=== PATIENT | male | born 1935 | race Caucasian/White ===

== ENCOUNTER 2022-06-22 11:40 | Inpatient (IN) | payer MEDICARE, OTHER ==
[~2022-06-22] VITALS: Ht 182.9 cm; Wt 86.2 kg
[2022-06-22] MEDS ORDERED: PIPERACILLIN /TAZOBACTAM 3.375 G in IV D5W 50 ML IV ONE (12:00)
[2022-06-22] MEDS ORDERED: IV NS 0.9% 1,000 ML BAG IV ONE ×2 (12:00→14:00)
[2022-06-22] MEDS ORDERED: VANCOMYCIN 1 GM in IV D5W 250 ML IV ONE (12:00)
[2022-06-22] MEDS ORDERED: DEXL60CA3 PO (12:39)
[2022-06-22] MEDS ORDERED: POTA-10 PO (12:39)
[2022-06-22] MEDS ORDERED: PRAM0.258 PO (12:39)
[2022-06-22] MEDS ORDERED: METO5TAB7 PO (12:39)
[2022-06-22] MEDS ORDERED: OMEG1CAP40 PO (12:39)
[2022-06-22] MEDS ORDERED: TAMS-12 PO (12:39)
[2022-06-22] MEDS ORDERED: CARB1TAB21 PO (12:39)
[2022-06-22] MEDS ORDERED: ZINC220T4 PO (12:39)
[2022-06-22] MEDS ORDERED: FURO40TA5 PO (12:39)
[2022-06-22] MEDS ORDERED: ERGO500093 PO (12:39)
[2022-06-22] MEDS ORDERED: LOSA25TA27 PO (12:39)
[2022-06-22] MEDS ORDERED: HYDR-3980 MT (12:39)
[2022-06-22] MEDS ORDERED: HYDR-4303 PO (12:39)
[2022-06-22] MEDS ORDERED: APIX2.5T PO (12:39)
[2022-06-22 12:53] LABS: BASOPHILS % (AUTO) 0.2 % (0.0-2.0); EOSINOPHILS % (AUTO) 0.3 % (0.0-6.0); HEMATOCRIT 44 % (39-51); HEMOGLOBIN 14.2 g/dL (13.5-17.5); LYMPHOCYTES # (AUTO) 1.7 K/uL (0.8-4.8); LYMPHOCYTES % (AUTO) 9.2 % (20.0-44.0); MEAN CORPUSCULAR HGB CONC 32 g/dl (31.0-36.0); MEAN CORPUSCULAR VOLUME 87 fL (80-96); MONOCYTES # (AUTO) 1.4 K/uL (0.1-1.30); MONOCYTES % (AUTO) 7.6 % (2.0-12.0); NEUTROPHILS # (AUTO) 15.2 K/uL (1.8-8.9); NEUTROPHILS % (AUTO) 82.7 % (43.0-81.0); PLATELET COUNT (AUTO) 393 K/uL (150-450); RED BLOOD CELL COUNT(AUTO) 5.05 MIL/uL (4.5-6.0); WHITE BLOOD COUNT (AUTO) 18.4 K/uL (4.3-11.0)
[2022-06-22 12:54] LABS: BILIRUBIN,URINE 1+ (NEGATIVE); COLOR,URINE DARK YELLOW (YELLOW); LEUKOCYTE ESTERASE ,URINE 2+ (NEGATIVE); NITRITE, URINE POSITIVE (NEGATIVE); PROTEIN,URINE NEGATIVE (NEGATIVE); UGLUCOSE NEGATIVE (NEGATIVE)
[2022-06-22 12:55] LABS: ALANINE AMINOTRANSFERASE 47 U/L (12-78); ALBUMIN 2.4 g/dL (3.4-5.0); ALKALINE PHOSPHATASE 187 U/L (46-116); ASPARTATE AMINOTRANSFERASE 74 U/L (15-37); BILIRUBIN,DIRECT 0.7 mg/dL (0.0-0.2); BILIRUBIN,TOTAL 1.4 mg/dL (0.2-1.0); CALCIUM, SERUM 9.1 mg/dL (8.5-10.1); CARBON DIOXIDE 27 mmol/L (21-32); CHLORIDE 95 mmol/L (98-107); CREATININE 1.5 mg/dL (0.6-1.3); GLUCOSE 103 mg/dL (74-106); POTASSIUM 3.2 mmol/L (3.5-5.1); SODIUM SERUM 134 mmol/L (136-145); TOTAL PROTEIN, SERUM 7.6 g/dL (6.4-8.2); UREA NITROGEN, BLOOD 37 mg/dL (7-18)
[2022-06-22] MEDS ORDERED: NATE120T6 PO (12:58)
[2022-06-22] MEDS ORDERED: BENZ200C53 PO (12:58)
[2022-06-22] MEDS ORDERED: CLON0.5T4 PO (12:58)
[2022-06-22 13:06] LABS: BACTERIA,URINE Many /HPF (None Seen); SQUAMOUS EPITHELIAL CELL,UR Moderate /HPF (None Seen); WBC,URINE 21-50 /HPF (0-3)
[2022-06-22] MEDS ORDERED: IV NS 0.9% 1,000 ML IV ONE (13:30)
[2022-06-22] MEDS ORDERED: DEXTROSE 50%-WATER 50 ML DISP.SYRIN IV PRN (15:00)
[2022-06-22] MEDS ORDERED: HYDROCODONE/APAP 5/325MG TABLET PO PRN (15:00)
[2022-06-22] MEDS ORDERED: BENZONATATE 100 MG CAPSULE PO PRN (15:00)
[2022-06-22] MEDS ORDERED: MAG HYDROX/AL HYDROX/SIMETH 30 ML UDC PO PRN (15:00)
[2022-06-22] MEDS ORDERED: MAGNESIUM HYDROXIDE 30 ML UDC PO PRN (15:00)
[2022-06-22] MEDS ORDERED: MORPHINE SULFATE INJ 2 MG/ML DISP.SYRIN IV PRN (15:00)
[2022-06-22] MEDS ORDERED: ONDANSETRON HCL/PF 4 MG/2 ML VIAL IVP PRN (15:00)
[2022-06-22] MEDS ORDERED: Z GUARD REMEDY 4 OZ OINT TP PRN (15:00)
[2022-06-22] MEDS ORDERED: clonazePAM 0.5 MG TABLET PO PRN (15:00)
[2022-06-22] MEDS ORDERED: IV NS 0.9% 1,000 ML IV PRN (15:00)
[2022-06-22 16:00] VITALS: BP 129/76
[2022-06-22] MEDS: PRAMIPEXOLE DI-HCL 0.25 MG TABLET PO SCH (16:45)
[2022-06-22] MEDS: CARBIDOPA/LEVODOPA 25/100 MG 1 UDTAB PO SCH (16:45)
[2022-06-22] MEDS: BLOOD SUGAR DIAGNOSTIC 1 EACH STRIP IN SCH ×2 (16:54→21:10)
[2022-06-22] MEDS ORDERED: APIXABAN 2.5 MG TABLET PO SCH (17:00)
[2022-06-22] MEDS: NATEGLINIDE 60 MG TABLET PO SCH (17:12)
[2022-06-22] MEDS: PIPERACILLIN /TAZOBACTAM 3.375 G in IV D5W 100 ML IV SCH (21:10)
[2022-06-22] MEDS ORDERED: POTASSIUM CHLORIDE 10 MEQ TABLET.SA PO ONE (22:00)
[2022-06-23] MEDS: PIPERACILLIN /TAZOBACTAM 3.375 G in IV D5W 100 ML IV SCH ×3 (04:35→21:19)
[2022-06-23] MEDS: BLOOD SUGAR DIAGNOSTIC 1 EACH STRIP IN SCH ×4 (06:45→21:52)
[2022-06-23 06:48] LABS: BASOPHILS % (AUTO) 0.2 % (0.0-2.0); EOSINOPHILS % (AUTO) 0.3 % (0.0-6.0); HEMATOCRIT 38 % (39-51); HEMOGLOBIN 12.4 g/dL (13.5-17.5); LYMPHOCYTES # (AUTO) 1.3 K/uL (0.8-4.8); LYMPHOCYTES % (AUTO) 7.3 % (20.0-44.0); MEAN CORPUSCULAR HGB CONC 32 g/dl (31.0-36.0); MEAN CORPUSCULAR VOLUME 87 fL (80-96); MONOCYTES # (AUTO) 1.3 K/uL (0.1-1.30); MONOCYTES % (AUTO) 7.5 % (2.0-12.0); NEUTROPHILS # (AUTO) 15.3 K/uL (1.8-8.9); NEUTROPHILS % (AUTO) 84.7 % (43.0-81.0); PLATELET COUNT (AUTO) 340 K/uL (150-450); RED BLOOD CELL COUNT(AUTO) 4.41 MIL/uL (4.5-6.0)
[2022-06-23 06:58] LABS: CALCIUM, SERUM 8.6 mg/dL (8.5-10.1); CREATININE 1.2 mg/dL (0.6-1.3); PHOSPHORUS 3.4 mg/dL (2.5-4.9)
[2022-06-23 07:02] LABS: POTASSIUM 2.7 mmol/L (3.5-5.1)
[2022-06-23 07:20] LABS: THYROID STIMULATING HORMONE 0.512 uIU/mL (0.358-3.74)
[2022-06-23 08:00] VITALS: BP 97/52
[2022-06-23] MEDS: LOSARTAN POTASSIUM 25 MG TABLET PO SCH (09:00)
[2022-06-23] MEDS ORDERED: METOLAZONE 2.5 MG TABLET PO SCH (09:00)
[2022-06-23] MEDS ORDERED: FUROSEMIDE 40 MG TABLET PO SCH (09:00)
[2022-06-23] MEDS: POTASSIUM CHLORIDE 10 MEQ TABLET.SA PO SCH (09:06)
[2022-06-23] MEDS: PANTOPRAZOLE 40 MG TABLET.DR PO SCH (09:06)
[2022-06-23] MEDS: ZINC SULFATE 220 MG CAPSULE PO SCH (09:06)
[2022-06-23] MEDS: TAMSULOSIN 0.4 MG CAP.SR.24H PO SCH (09:06)
[2022-06-23] MEDS: PRAMIPEXOLE DI-HCL 0.25 MG TABLET PO SCH ×2 (09:07→17:45)
[2022-06-23] MEDS: CARBIDOPA/LEVODOPA 25/100 MG 1 UDTAB PO SCH ×3 (09:13→17:45)
[2022-06-23] MEDS: POTASSIUM CHLORIDE 20 MEQ TAB.PRT.SR PO SCH ×2 (09:13→10:00)
[2022-06-23] MEDS: NATEGLINIDE 60 MG TABLET PO SCH ×3 (09:15→17:46)
[2022-06-23] MEDS: POTASSIUM CL. PREMIX PERIPHER. 50 ML IV SCH ×5 (10:20→14:37)
[2022-06-23 12:00] VITALS: BP 120/61
[2022-06-23] MEDS ORDERED: VANCOMYCIN 1 GM in IV D5W 250 ML IV SCH (12:00)
[2022-06-23] MEDS: VANCOMYCIN 1.25 GM in IV D5W 250 ML IV SCH (14:37)
[2022-06-23 16:00] VITALS: BP 107/43
[2022-06-23 20:52] VITALS: BP 116/83
[2022-06-24 00:05] VITALS: BP 108/43
[2022-06-24 04:26] VITALS: BP 108/49
[2022-06-24] MEDS: PIPERACILLIN /TAZOBACTAM 3.375 G in IV D5W 100 ML IV SCH ×3 (05:22→20:18)
[2022-06-24 06:11] LABS: BASOPHILS % (AUTO) 0.2 % (0.0-2.0); EOSINOPHILS % (AUTO) 0.5 % (0.0-6.0); HEMATOCRIT 37 % (39-51); LYMPHOCYTES # (AUTO) 1.6 K/uL (0.8-4.8); LYMPHOCYTES % (AUTO) 10.2 % (20.0-44.0); MEAN CORPUSCULAR HGB CONC 33 g/dl (31.0-36.0); MEAN CORPUSCULAR VOLUME 87 fL (80-96); MONOCYTES # (AUTO) 1.1 K/uL (0.1-1.30); MONOCYTES % (AUTO) 6.8 % (2.0-12.0); NEUTROPHILS # (AUTO) 13.1 K/uL (1.8-8.9); NEUTROPHILS % (AUTO) 82.3 % (43.0-81.0); PLATELET COUNT (AUTO) 347 K/uL (150-450); RED BLOOD CELL COUNT(AUTO) 4.24 MIL/uL (4.5-6.0); WHITE BLOOD COUNT (AUTO) 15.9 K/uL (4.3-11.0)
[2022-06-24 06:36] LABS: CALCIUM, SERUM 8.6 mg/dL (8.5-10.1); CARBON DIOXIDE 28 mmol/L (21-32); CHLORIDE 103 mmol/L (98-107); CREATININE 1.2 mg/dL (0.6-1.3); GLUCOSE 97 mg/dL (74-106); POTASSIUM 3.5 mmol/L (3.5-5.1); SODIUM SERUM 137 mmol/L (136-145); UREA NITROGEN, BLOOD 30 mg/dL (7-18)
[2022-06-24] MEDS: BLOOD SUGAR DIAGNOSTIC 1 EACH STRIP IN SCH ×4 (06:37→21:01)
[2022-06-24 08:08] VITALS: BP 102/55
[2022-06-24] MEDS: CARBIDOPA/LEVODOPA 25/100 MG 1 UDTAB PO SCH ×3 (08:56→17:30)
[2022-06-24] MEDS: TAMSULOSIN 0.4 MG CAP.SR.24H PO SCH (08:56)
[2022-06-24] MEDS: POTASSIUM CHLORIDE 10 MEQ TABLET.SA PO SCH (08:56)
[2022-06-24] MEDS: LOSARTAN POTASSIUM 25 MG TABLET PO SCH (08:56)
[2022-06-24] MEDS: PRAMIPEXOLE DI-HCL 0.25 MG TABLET PO SCH ×2 (08:56→17:30)
[2022-06-24] MEDS: NATEGLINIDE 60 MG TABLET PO SCH ×3 (08:59→17:30)
[2022-06-24] MEDS: ZINC SULFATE 220 MG CAPSULE PO SCH (09:00)
[2022-06-24] MEDS: PANTOPRAZOLE 40 MG TABLET.DR PO SCH (09:00)
[2022-06-24] MEDS: VANCOMYCIN 1.25 GM in IV D5W 250 ML IV SCH (13:15)
[2022-06-24 16:03] VITALS: BP 99/55
[2022-06-24] MEDS: ENSURE ENLIVE 237 ML LIQUID (VANILLA) PO SCH (17:00)
[2022-06-24] MEDS: IV D5/ 0.9% NACL 1,000 ML IV PRN (18:52)
[2022-06-24] MEDS ORDERED: ANESTHESIA TRAY IN PYXIS 1 EA TRAY MC ONE (18:52)
[2022-06-24 20:00] VITALS: BP 100/46
[2022-06-24] MEDS: INSULIN REGULAR, HUMAN 100 UNIT/ML 3 ML VIAL SQ PRN (21:02)
[2022-06-25] VITALS (25 sets, daily range): BP systolic 79–135; BP diastolic 39–71
[2022-06-25] MEDS: PIPERACILLIN /TAZOBACTAM 3.375 G in IV D5W 100 ML IV SCH ×3 (04:19→20:34)
[2022-06-25] MEDS ORDERED: ANESTHESIA TRAY IN PYXIS 1 EA TRAY MC ONE ×2 (05:36→07:33)
[2022-06-25] MEDS ORDERED: LIDOCAINE 1% INJ 50 ML MDV IJ ONE (05:37)
[2022-06-25] MEDS ORDERED: BUPIVACAINE 0.25% 75 MG/30 ML VIAL ONE (05:37)
[2022-06-25] MEDS ORDERED: FAMOTIDINE/PF INJ 20 MG/2 ML VIAL IV ONE (05:58)
[2022-06-25] MEDS ORDERED: FENTANYL PF 100MCG/2ML AMPUL ONE (05:58)
[2022-06-25] MEDS ORDERED: IODIXANOL 150 ML IV ONE (07:12)
[2022-06-25 07:18] LABS: BASOPHILS % (AUTO) 0.3 % (0.0-2.0); EOSINOPHILS % (AUTO) 0.6 % (0.0-6.0); HEMATOCRIT 42 % (39-51); HEMOGLOBIN 12.7 g/dL (13.5-17.5); LYMPHOCYTES # (AUTO) 1.5 K/uL (0.8-4.8); LYMPHOCYTES % (AUTO) 10.6 % (20.0-44.0); MEAN CORPUSCULAR HGB CONC 30 g/dl (31.0-36.0); MEAN CORPUSCULAR VOLUME 93 fL (80-96); MONOCYTES % (AUTO) 6.9 % (2.0-12.0); NEUTROPHILS # (AUTO) 11.6 K/uL (1.8-8.9); NEUTROPHILS % (AUTO) 81.6 % (43.0-81.0); PLATELET COUNT (AUTO) 324 K/uL (150-450); RED BLOOD CELL COUNT(AUTO) 4.48 MIL/uL (4.5-6.0); WHITE BLOOD COUNT (AUTO) 14.2 K/uL (4.3-11.0)
[2022-06-25] MEDS: PANTOPRAZOLE 40 MG TABLET.DR PO SCH (07:30)
[2022-06-25] MEDS ORDERED: MEPERIDINE25 MG SYR 25 MG/ML VIAL ONE (07:40)
[2022-06-25] MEDS: BLOOD SUGAR DIAGNOSTIC 1 EACH STRIP IN SCH ×4 (07:57→21:59)
[2022-06-25] MEDS: INSULIN REGULAR, HUMAN 100 UNIT/ML 3 ML VIAL SQ PRN ×2 (07:58→17:41)
[2022-06-25] MEDS: ENSURE ENLIVE 237 ML LIQUID (VANILLA) PO SCH ×3 (08:00→17:00)
[2022-06-25] MEDS: PRAMIPEXOLE DI-HCL 0.25 MG TABLET PO SCH ×2 (09:00→16:42)
[2022-06-25] MEDS: NATEGLINIDE 60 MG TABLET PO SCH ×3 (09:00→16:42)
[2022-06-25] MEDS: POTASSIUM CHLORIDE 10 MEQ TABLET.SA PO SCH (09:00)
[2022-06-25] MEDS ORDERED: ACETAMINOPHEN 650 MG/SUPP.RECT RC ONE (09:00)
[2022-06-25] MEDS: TAMSULOSIN 0.4 MG CAP.SR.24H PO SCH (09:00)
[2022-06-25] MEDS: LOSARTAN POTASSIUM 25 MG TABLET PO SCH (09:00)
[2022-06-25] MEDS: CARBIDOPA/LEVODOPA 25/100 MG 1 UDTAB PO SCH ×3 (09:00→16:42)
[2022-06-25] MEDS: ZINC SULFATE 220 MG CAPSULE PO SCH (09:00)
[2022-06-25] MEDS ORDERED: SECONDARY IV SET 1 EA INFUS.SET MC ONE (10:58)
[2022-06-25] MEDS ORDERED: CEFAZOLIN 2 GM in IV D5W 100 ML IV ONE (11:00)
[2022-06-25] MEDS ORDERED: ANCEF 1 GM/50 ML D5W IV ONE ×2 (11:00)
[2022-06-25] MEDS: VANCOMYCIN 1.25 GM in IV D5W 250 ML IV SCH (13:43)
[2022-06-25 15:37] LABS: CALCIUM, SERUM 7.9 mg/dL (8.5-10.1); CARBON DIOXIDE 23 mmol/L (21-32); CHLORIDE 104 mmol/L (98-107); CREATININE 1.6 mg/dL (0.6-1.3); GLUCOSE 136 mg/dL (74-106); POTASSIUM 2.9 mmol/L (3.5-5.1); SODIUM SERUM 137 mmol/L (136-145); UREA NITROGEN, BLOOD 28 mg/dL (7-18)
[2022-06-25] MEDS: IV D5/ 0.9% NACL 1,000 ML IV PRN (17:37)
[2022-06-25] MEDS ORDERED: IV NS 0.9% 1,000 ML IV ONE (19:30)
[2022-06-25] MEDS: ANCEF 1 GM/50 ML D5W IV SCH ×2 (20:41)
[2022-06-25] MEDS ORDERED: POTASSIUM CHLORIDE 20 MEQ TAB.PRT.SR PO ONE (23:30)
[2022-06-26 00:30] VITALS: BP 91/42
[2022-06-26 01:28] LABS: BAND % (MANUAL) 4 % (0.0-5.0); LYMPHOCYTES % (MANUAL) 12 % (16-48); NEUTROPHILS % (MANUAL) 76 (42-76)
[2022-06-26 01:29] LABS: BASOPHILS % (MANUAL) 0 % (0.0-2.0); EOSINOPHILS % (MANUAL) 0 % (0-4); MONOCYTES % (MANUAL) 8 % (0-11.0)
[2022-06-26 04:36] VITALS: BP 102/49
[2022-06-26] MEDS: ANCEF 1 GM/50 ML D5W IV SCH ×4 (05:17→12:01)
[2022-06-26] MEDS: PIPERACILLIN /TAZOBACTAM 3.375 G in IV D5W 100 ML IV SCH (05:18)
[2022-06-26] MEDS: BLOOD SUGAR DIAGNOSTIC 1 EACH STRIP IN SCH ×4 (06:40→22:01)
[2022-06-26 07:05] LABS: BASOPHILS % (AUTO) 0.2 % (0.0-2.0); EOSINOPHILS % (AUTO) 0.3 % (0.0-6.0); HEMATOCRIT 36 % (39-51); HEMOGLOBIN 11.4 g/dL (13.5-17.5); LYMPHOCYTES # (AUTO) 1.6 K/uL (0.8-4.8); MEAN CORPUSCULAR HGB CONC 32 g/dl (31.0-36.0); MEAN CORPUSCULAR VOLUME 87 fL (80-96); MONOCYTES % (AUTO) 4.5 % (2.0-12.0); NEUTROPHILS # (AUTO) 20.3 K/uL (1.8-8.9); PLATELET COUNT (AUTO) 365 K/uL (150-450); RED BLOOD CELL COUNT(AUTO) 4.17 MIL/uL (4.5-6.0); WHITE BLOOD COUNT (AUTO) 23.1 K/uL (4.3-11.0)
[2022-06-26] MEDS: PANTOPRAZOLE 40 MG TABLET.DR PO SCH (07:39)
[2022-06-26 07:41] LABS: CALCIUM, SERUM 8.2 mg/dL (8.5-10.1); CARBON DIOXIDE 25 mmol/L (21-32); CHLORIDE 105 mmol/L (98-107); CREATININE 1.5 mg/dL (0.6-1.3); GLUCOSE 91 mg/dL (74-106); POTASSIUM 3.7 mmol/L (3.5-5.1); SODIUM SERUM 139 mmol/L (136-145); UREA NITROGEN, BLOOD 27 mg/dL (7-18)
[2022-06-26] MEDS: ENSURE ENLIVE 237 ML LIQUID (VANILLA) PO SCH ×3 (08:04→17:07)
[2022-06-26] MEDS: NATEGLINIDE 60 MG TABLET PO SCH ×3 (08:06→16:10)
[2022-06-26] MEDS: POTASSIUM CHLORIDE 10 MEQ TABLET.SA PO SCH (08:06)
[2022-06-26] MEDS: ZINC SULFATE 220 MG CAPSULE PO SCH (08:06)
[2022-06-26] MEDS: CARBIDOPA/LEVODOPA 25/100 MG 1 UDTAB PO SCH ×3 (08:06→16:09)
[2022-06-26] MEDS: PRAMIPEXOLE DI-HCL 0.25 MG TABLET PO SCH ×2 (08:06→16:09)
[2022-06-26] MEDS: LOSARTAN POTASSIUM 25 MG TABLET PO SCH (08:06)
[2022-06-26] MEDS: TAMSULOSIN 0.4 MG CAP.SR.24H PO SCH (08:08)
[2022-06-26] MEDS: ERGOCALCIFEROL (VITAMIN D 2) 50,000 UNIT CAPSULE PO SCH (08:09)
[2022-06-26 08:38] VITALS: BP 114/56
[2022-06-26] MEDS: INSULIN REGULAR, HUMAN 100 UNIT/ML 3 ML VIAL SQ PRN ×2 (11:31→17:01)
[2022-06-26] MEDS: VANCOMYCIN 1.25 GM in IV D5W 250 ML IV SCH (12:55)
[2022-06-26] MEDS: ACETAMINOPHEN 325 MG TABLET PO PRN (13:46)
[2022-06-26 16:20] VITALS: BP 119/54
[2022-06-26] MEDS: IV D5/ 0.9% NACL 1,000 ML IV PRN (19:03)
[2022-06-26 20:00] VITALS: BP 129/68
[2022-06-26] MEDS: CEFEPIME 2 GM in IV D5W 100 ML IV SCH (21:07)
[2022-06-27 00:24] VITALS: BP 124/55
[2022-06-27 06:15] LABS: BASOPHILS # (AUTO) 0.1 K/uL (0.0-0.2); BASOPHILS % (AUTO) 0.3 % (0.0-2.0); EOSINOPHILS % (AUTO) 0.5 % (0.0-6.0); HEMATOCRIT 40 % (39-51); HEMOGLOBIN 12.7 g/dL (13.5-17.5); LYMPHOCYTES # (AUTO) 1.5 K/uL (0.8-4.8); LYMPHOCYTES % (AUTO) 6.3 % (20.0-44.0); MEAN CORPUSCULAR HGB CONC 32 g/dl (31.0-36.0); MEAN CORPUSCULAR VOLUME 87 fL (80-96); MONOCYTES % (AUTO) 4.2 % (2.0-12.0); NEUTROPHILS # (AUTO) 20.5 K/uL (1.8-8.9); NEUTROPHILS % (AUTO) 88.7 % (43.0-81.0); PLATELET COUNT (AUTO) 367 K/uL (150-450); RED BLOOD CELL COUNT(AUTO) 4.56 MIL/uL (4.5-6.0); WHITE BLOOD COUNT (AUTO) 23.1 K/uL (4.3-11.0)
[2022-06-27 06:31] LABS: CALCIUM, SERUM 8.4 mg/dL (8.5-10.1); CARBON DIOXIDE 19 mmol/L (21-32); CHLORIDE 106 mmol/L (98-107); CREATININE 1.2 mg/dL (0.6-1.3); GLUCOSE 146 mg/dL (74-106); POTASSIUM 4.1 mmol/L (3.5-5.1); SODIUM SERUM 136 mmol/L (136-145); UREA NITROGEN, BLOOD 21 mg/dL (7-18)
[2022-06-27] MEDS: BLOOD SUGAR DIAGNOSTIC 1 EACH STRIP IN SCH ×4 (06:35→22:00)
[2022-06-27 08:00] VITALS: BP 144/77
[2022-06-27] MEDS: ENSURE ENLIVE 237 ML LIQUID (VANILLA) PO SCH ×3 (08:02→16:20)
[2022-06-27] MEDS: PANTOPRAZOLE 40 MG TABLET.DR PO SCH (08:02)
[2022-06-27] MEDS: NATEGLINIDE 60 MG TABLET PO SCH ×3 (08:55→16:20)
[2022-06-27] MEDS: CARBIDOPA/LEVODOPA 25/100 MG 1 UDTAB PO SCH ×3 (08:55→16:20)
[2022-06-27] MEDS: LOSARTAN POTASSIUM 25 MG TABLET PO SCH (08:55)
[2022-06-27] MEDS: TAMSULOSIN 0.4 MG CAP.SR.24H PO SCH (08:55)
[2022-06-27] MEDS: POTASSIUM CHLORIDE 10 MEQ TABLET.SA PO SCH (08:55)
[2022-06-27] MEDS: PRAMIPEXOLE DI-HCL 0.25 MG TABLET PO SCH ×2 (08:55→16:20)
[2022-06-27] MEDS: ZINC SULFATE 220 MG CAPSULE PO SCH (08:55)
[2022-06-27] MEDS: CEFEPIME 2 GM in IV D5W 100 ML IV SCH ×2 (08:57→21:49)
[2022-06-27] MEDS: HEPARIN SODIUM, PORCINE 5000 UNITS/1 ML VIAL SQ SCH ×2 (10:28→21:49)
[2022-06-27 10:48] LABS: BAND % (MANUAL) 1 % (0.0-5.0); NEUTROPHILS % (MANUAL) 87 (42-76)
[2022-06-27 10:49] LABS: BASOPHILS % (MANUAL) 0 % (0.0-2.0); EOSINOPHILS % (MANUAL) 1 % (0-4); LYMPHOCYTES % (MANUAL) 9 % (16-48); MONOCYTES % (MANUAL) 2 % (0-11.0)
[2022-06-27] MEDS: IV D5/ 0.9% NACL 1,000 ML IV PRN (10:56)
[2022-06-27 12:00] VITALS: BP 124/60
[2022-06-27] MEDS: INSULIN REGULAR, HUMAN 100 UNIT/ML 3 ML VIAL SQ PRN ×2 (12:57→16:55)
[2022-06-27] MEDS: VANCOMYCIN 1.25 GM in IV D5W 250 ML IV SCH (13:09)
[2022-06-27 16:00] VITALS: BP 142/62
[2022-06-27 20:00] VITALS: BP 129/56
[2022-06-28] VITALS: BP 144/52
[2022-06-28 04:00] VITALS: BP 142/65
[2022-06-28] MEDS: IV D5/ 0.9% NACL 1,000 ML IV PRN ×2 (04:41→19:06)
[2022-06-28] MEDS: BLOOD SUGAR DIAGNOSTIC 1 EACH STRIP IN SCH ×4 (06:53→22:00)
[2022-06-28 07:00] VITALS: BP 135/59
[2022-06-28 07:30] LABS: BASOPHILS # (AUTO) 0.1 K/uL (0.0-0.2); BASOPHILS % (AUTO) 0.4 % (0.0-2.0); EOSINOPHILS % (AUTO) 0.6 % (0.0-6.0); HEMATOCRIT 39 % (39-51); HEMOGLOBIN 12.4 g/dL (13.5-17.5); LYMPHOCYTES # (AUTO) 1.3 K/uL (0.8-4.8); LYMPHOCYTES % (AUTO) 6.9 % (20.0-44.0); MEAN CORPUSCULAR HGB CONC 32 g/dl (31.0-36.0); MEAN CORPUSCULAR VOLUME 88 fL (80-96); MONOCYTES % (AUTO) 5.3 % (2.0-12.0); NEUTROPHILS # (AUTO) 16.1 K/uL (1.8-8.9); NEUTROPHILS % (AUTO) 86.8 % (43.0-81.0); PLATELET COUNT (AUTO) 337 K/uL (150-450); RED BLOOD CELL COUNT(AUTO) 4.47 MIL/uL (4.5-6.0); WHITE BLOOD COUNT (AUTO) 18.5 K/uL (4.3-11.0)
[2022-06-28 07:43] LABS: CALCIUM, SERUM 8.4 mg/dL (8.5-10.1); CREATININE 1.1 mg/dL (0.6-1.3); POTASSIUM 3.9 mmol/L (3.5-5.1)
[2022-06-28] MEDS: PANTOPRAZOLE 40 MG TABLET.DR PO SCH (08:00)
[2022-06-28] MEDS: ENSURE ENLIVE 237 ML LIQUID (VANILLA) PO SCH ×3 (08:01→17:09)
[2022-06-28] MEDS: ZINC SULFATE 220 MG CAPSULE PO SCH (08:44)
[2022-06-28] MEDS: NATEGLINIDE 60 MG TABLET PO SCH ×4 (08:44→17:08)
[2022-06-28] MEDS: PRAMIPEXOLE DI-HCL 0.25 MG TABLET PO SCH ×3 (08:45→17:09)
[2022-06-28] MEDS: CARBIDOPA/LEVODOPA 25/100 MG 1 UDTAB PO SCH ×5 (08:45→17:09)
[2022-06-28] MEDS: LOSARTAN POTASSIUM 25 MG TABLET PO SCH (08:45)
[2022-06-28] MEDS: POTASSIUM CHLORIDE 10 MEQ TABLET.SA PO SCH (08:45)
[2022-06-28] MEDS: TAMSULOSIN 0.4 MG CAP.SR.24H PO SCH (08:45)
[2022-06-28] MEDS: HEPARIN SODIUM, PORCINE 5000 UNITS/1 ML VIAL SQ SCH ×2 (08:47→22:43)
[2022-06-28] MEDS: CEFEPIME 2 GM in IV D5W 100 ML IV SCH (08:50)
[2022-06-28] MEDS: VANCOMYCIN 1.25 GM in IV D5W 250 ML IV SCH (13:00)
[2022-06-28] MEDS: VANCOMYCIN 1 GM in IV D5W 250 ML IV SCH (15:26)
[2022-06-28] MEDS: INSULIN REGULAR, HUMAN 100 UNIT/ML 3 ML VIAL SQ PRN (16:51)
[2022-06-28] MEDS: MEROPENEM 1 G in IV NS 0.9% 100 ML IV SCH (17:54)
[2022-06-28] MEDS ORDERED: MEROPENEM 500 MG in IV NS 0.9% 50 ML IV SCH (21:00)
[2022-06-28 23:30] VITALS: BP 134/90
[2022-06-29] VITALS: BP 101/80
[2022-06-29] MEDS: MEROPENEM 1 G in IV NS 0.9% 100 ML IV SCH ×3 (02:00→17:54)
[2022-06-29 04:00] VITALS: BP 132/82
[2022-06-29] MEDS: BLOOD SUGAR DIAGNOSTIC 1 EACH STRIP IN SCH ×4 (06:48→22:27)
[2022-06-29 08:00] VITALS: BP 124/54
[2022-06-29] MEDS: NATEGLINIDE 60 MG TABLET PO SCH ×3 (08:28→16:16)
[2022-06-29] MEDS: PRAMIPEXOLE DI-HCL 0.25 MG TABLET PO SCH ×2 (08:30→16:16)
[2022-06-29] MEDS: CARBIDOPA/LEVODOPA 25/100 MG 1 UDTAB PO SCH ×3 (08:30→16:15)
[2022-06-29] MEDS: TAMSULOSIN 0.4 MG CAP.SR.24H PO SCH (08:30)
[2022-06-29] MEDS: HEPARIN SODIUM, PORCINE 5000 UNITS/1 ML VIAL SQ SCH ×3 (08:30→21:52)
[2022-06-29] MEDS: ZINC SULFATE 220 MG CAPSULE PO SCH (08:32)
[2022-06-29] MEDS: POTASSIUM CHLORIDE 10 MEQ TABLET.SA PO SCH (08:32)
[2022-06-29] MEDS: PANTOPRAZOLE 40 MG TABLET.DR PO SCH (08:33)
[2022-06-29] MEDS: LOSARTAN POTASSIUM 25 MG TABLET PO SCH (08:39)
[2022-06-29] MEDS: ENSURE ENLIVE 237 ML LIQUID (VANILLA) PO SCH ×3 (08:59→17:01)
[2022-06-29 12:00] VITALS: BP 134/51
[2022-06-29] MEDS: VANCOMYCIN 1 GM in IV D5W 250 ML IV SCH (15:07)
[2022-06-29 15:43] LABS: BASOPHILS # (AUTO) 0.1 K/uL (0.0-0.2); BASOPHILS % (AUTO) 0.5 % (0.0-2.0); EOSINOPHILS % (AUTO) 1.2 % (0.0-6.0); HEMATOCRIT 37 % (39-51); HEMOGLOBIN 11.6 g/dL (13.5-17.5); LYMPHOCYTES # (AUTO) 1.3 K/uL (0.8-4.8); LYMPHOCYTES % (AUTO) 10.9 % (20.0-44.0); MEAN CORPUSCULAR HGB CONC 32 g/dl (31.0-36.0); MEAN CORPUSCULAR VOLUME 87 fL (80-96); MONOCYTES # (AUTO) 0.8 K/uL (0.1-1.30); MONOCYTES % (AUTO) 6.3 % (2.0-12.0); NEUTROPHILS % (AUTO) 81.1 % (43.0-81.0); PLATELET COUNT (AUTO) 379 K/uL (150-450); RED BLOOD CELL COUNT(AUTO) 4.25 MIL/uL (4.5-6.0); WHITE BLOOD COUNT (AUTO) 12.4 K/uL (4.3-11.0)
[2022-06-29 16:00] VITALS: BP 121/54
[2022-06-29 16:12] LABS: CALCIUM, SERUM 8.1 mg/dL (8.5-10.1); CREATININE 1.1 mg/dL (0.6-1.3); POTASSIUM 3.5 mmol/L (3.5-5.1)
[2022-06-29 20:00] VITALS: BP 102/53
[2022-06-29] MEDS: MIRTAZAPINE 15 MG TABLET PO SCH (21:52)
[2022-06-29] MEDS: INSULIN REGULAR, HUMAN 100 UNIT/ML 3 ML VIAL SQ PRN (22:30)
[2022-06-30] VITALS: BP 131/57
[2022-06-30] MEDS: MEROPENEM 1 G in IV NS 0.9% 100 ML IV SCH ×3 (01:50→16:22)
[2022-06-30 04:00] VITALS: BP 137/50
[2022-06-30 06:22] LABS: BASOPHILS # (AUTO) 0.1 K/uL (0.0-0.2); BASOPHILS % (AUTO) 0.4 % (0.0-2.0); EOSINOPHILS % (AUTO) 1.4 % (0.0-6.0); HEMATOCRIT 37 % (39-51); HEMOGLOBIN 11.7 g/dL (13.5-17.5); LYMPHOCYTES # (AUTO) 1.6 K/uL (0.8-4.8); LYMPHOCYTES % (AUTO) 12.4 % (20.0-44.0); MEAN CORPUSCULAR HGB CONC 32 g/dl (31.0-36.0); MEAN CORPUSCULAR VOLUME 87 fL (80-96); MONOCYTES # (AUTO) 0.9 K/uL (0.1-1.30); MONOCYTES % (AUTO) 7.1 % (2.0-12.0); NEUTROPHILS # (AUTO) 10.2 K/uL (1.8-8.9); NEUTROPHILS % (AUTO) 78.7 % (43.0-81.0); PLATELET COUNT (AUTO) 362 K/uL (150-450); RED BLOOD CELL COUNT(AUTO) 4.23 MIL/uL (4.5-6.0)
[2022-06-30] MEDS: INSULIN REGULAR, HUMAN 100 UNIT/ML 3 ML VIAL SQ PRN ×2 (06:44→21:37)
[2022-06-30] MEDS: BLOOD SUGAR DIAGNOSTIC 1 EACH STRIP IN SCH ×4 (06:46→21:36)
[2022-06-30 06:51] LABS: CALCIUM, SERUM 8.2 mg/dL (8.5-10.1); CREATININE 1.1 mg/dL (0.6-1.3); POTASSIUM 3.6 mmol/L (3.5-5.1)
[2022-06-30 07:00] VITALS: BP 137/52
[2022-06-30] MEDS: ENSURE ENLIVE 237 ML LIQUID (VANILLA) PO SCH ×3 (08:00→17:38)
[2022-06-30] MEDS: PANTOPRAZOLE 40 MG TABLET.DR PO SCH (08:42)
[2022-06-30] MEDS: CARBIDOPA/LEVODOPA 25/100 MG 1 UDTAB PO SCH ×3 (09:16→17:12)
[2022-06-30] MEDS: POTASSIUM CHLORIDE 10 MEQ TABLET.SA PO SCH (09:16)
[2022-06-30] MEDS: PRAMIPEXOLE DI-HCL 0.25 MG TABLET PO SCH ×2 (09:16→17:12)
[2022-06-30] MEDS: TAMSULOSIN 0.4 MG CAP.SR.24H PO SCH (09:16)
[2022-06-30] MEDS: NATEGLINIDE 60 MG TABLET PO SCH ×2 (09:16→12:48)
[2022-06-30] MEDS: LOSARTAN POTASSIUM 25 MG TABLET PO SCH (09:17)
[2022-06-30] MEDS: ZINC SULFATE 220 MG CAPSULE PO SCH (09:17)
[2022-06-30] MEDS: HEPARIN SODIUM, PORCINE 5000 UNITS/1 ML VIAL SQ SCH ×2 (09:19→21:39)
[2022-06-30] MEDS: ACETAMINOPHEN 325 MG TABLET PO PRN (10:34)
[2022-06-30 12:00] VITALS: BP 118/52
[2022-06-30 16:00] VITALS: BP 133/51
[2022-06-30] MEDS: VANCOMYCIN 1 GM in IV D5W 250 ML IV SCH (16:26)
[2022-06-30] MEDS: IV D5/ 0.9% NACL 1,000 ML IV PRN (17:37)
[2022-06-30] MEDS: MIRTAZAPINE 15 MG TABLET PO SCH (21:37)
[2022-07-01] MEDS: MEROPENEM 1 G in IV NS 0.9% 100 ML IV SCH ×3 (01:17→17:35)
[2022-07-01] MEDS: BLOOD SUGAR DIAGNOSTIC 1 EACH STRIP IN SCH ×4 (06:40→21:37)
[2022-07-01] MEDS: INSULIN REGULAR, HUMAN 100 UNIT/ML 3 ML VIAL SQ PRN ×4 (06:41→21:38)
[2022-07-01 07:00] VITALS: BP 138/57
[2022-07-01 07:10] LABS: BASOPHILS # (AUTO) 0.1 K/uL (0.0-0.2); BASOPHILS % (AUTO) 0.4 % (0.0-2.0); EOSINOPHILS % (AUTO) 1.3 % (0.0-6.0); HEMATOCRIT 38 % (39-51); LYMPHOCYTES % (AUTO) 14.4 % (20.0-44.0); MEAN CORPUSCULAR HGB CONC 32 g/dl (31.0-36.0); MEAN CORPUSCULAR VOLUME 87 fL (80-96); MONOCYTES # (AUTO) 1.1 K/uL (0.1-1.30); MONOCYTES % (AUTO) 8.2 % (2.0-12.0); NEUTROPHILS # (AUTO) 10.2 K/uL (1.8-8.9); NEUTROPHILS % (AUTO) 75.7 % (43.0-81.0); PLATELET COUNT (AUTO) 318 K/uL (150-450); RED BLOOD CELL COUNT(AUTO) 4.31 MIL/uL (4.5-6.0); WHITE BLOOD COUNT (AUTO) 13.5 K/uL (4.3-11.0)
[2022-07-01 07:42] LABS: CALCIUM, SERUM 8.3 mg/dL (8.5-10.1); CARBON DIOXIDE 24 mmol/L (21-32); CHLORIDE 105 mmol/L (98-107); CREATININE 1.1 mg/dL (0.6-1.3); GLUCOSE 88 mg/dL (74-106); MAGNESIUM 2.4 mg/dL (1.8-2.4); PHOSPHORUS 2.2 mg/dL (2.5-4.9); SODIUM SERUM 135 mmol/L (136-145); UREA NITROGEN, BLOOD 15 mg/dL (7-18)
[2022-07-01] MEDS: POTASSIUM CHLORIDE 10 MEQ TABLET.SA PO SCH (08:08)
[2022-07-01] MEDS: ZINC SULFATE 220 MG CAPSULE PO SCH (08:08)
[2022-07-01] MEDS: CARBIDOPA/LEVODOPA 25/100 MG 1 UDTAB PO SCH ×3 (08:08→16:13)
[2022-07-01] MEDS: PANTOPRAZOLE 40 MG TABLET.DR PO SCH (08:08)
[2022-07-01] MEDS: PRAMIPEXOLE DI-HCL 0.25 MG TABLET PO SCH ×2 (08:09→16:13)
[2022-07-01] MEDS: LOSARTAN POTASSIUM 25 MG TABLET PO SCH (08:09)
[2022-07-01] MEDS: TAMSULOSIN 0.4 MG CAP.SR.24H PO SCH (08:09)
[2022-07-01] MEDS: ENSURE ENLIVE 237 ML LIQUID (VANILLA) PO SCH ×3 (08:10→16:13)
[2022-07-01] MEDS: HEPARIN SODIUM, PORCINE 5000 UNITS/1 ML VIAL SQ SCH ×2 (08:11→21:40)
[2022-07-01] MEDS: IV D5/ 0.9% NACL 1,000 ML IV PRN (10:57)
[2022-07-01] MEDS ORDERED: NEUTRA PHOS 1 POWD.PACKET NG ONE (15:30)
[2022-07-01 16:00] VITALS: BP 114/54
[2022-07-01] MEDS: MIRTAZAPINE 15 MG TABLET PO SCH (21:37)
[2022-07-02] MEDS: IV D5/ 0.9% NACL 1,000 ML IV PRN (02:09)
[2022-07-02] MEDS: MEROPENEM 1 G in IV NS 0.9% 100 ML IV SCH ×3 (02:09→17:07)
[2022-07-02 06:28] LABS: BASOPHILS # (AUTO) 0.1 K/uL (0.0-0.2); BASOPHILS % (AUTO) 0.5 % (0.0-2.0); EOSINOPHILS % (AUTO) 1.2 % (0.0-6.0); HEMATOCRIT 36 % (39-51); HEMOGLOBIN 11.6 g/dL (13.5-17.5); LYMPHOCYTES # (AUTO) 1.6 K/uL (0.8-4.8); LYMPHOCYTES % (AUTO) 13.2 % (20.0-44.0); MEAN CORPUSCULAR HGB CONC 33 g/dl (31.0-36.0); MEAN CORPUSCULAR VOLUME 87 fL (80-96); MONOCYTES % (AUTO) 7.7 % (2.0-12.0); NEUTROPHILS # (AUTO) 9.6 K/uL (1.8-8.9); NEUTROPHILS % (AUTO) 77.4 % (43.0-81.0); PLATELET COUNT (AUTO) 349 K/uL (150-450); RED BLOOD CELL COUNT(AUTO) 4.11 MIL/uL (4.5-6.0); WHITE BLOOD COUNT (AUTO) 12.5 K/uL (4.3-11.0)
[2022-07-02 07:12] LABS: CALCIUM, SERUM 8.5 mg/dL (8.5-10.1); CARBON DIOXIDE 25 mmol/L (21-32); CHLORIDE 102 mmol/L (98-107); CREATININE 1.1 mg/dL (0.6-1.3); GLUCOSE 96 mg/dL (74-106); MAGNESIUM 2.3 mg/dL (1.8-2.4); PHOSPHORUS 2.5 mg/dL (2.5-4.9); POTASSIUM 4.2 mmol/L (3.5-5.1); SODIUM SERUM 135 mmol/L (136-145); UREA NITROGEN, BLOOD 15 mg/dL (7-18)
[2022-07-02 08:00] VITALS: BP 142/63
[2022-07-02] MEDS: BLOOD SUGAR DIAGNOSTIC 1 EACH STRIP IN SCH ×4 (08:33→21:42)
[2022-07-02] MEDS: LOSARTAN POTASSIUM 25 MG TABLET PO SCH (08:44)
[2022-07-02] MEDS: CARBIDOPA/LEVODOPA 25/100 MG 1 UDTAB PO SCH ×3 (08:44→16:50)
[2022-07-02] MEDS: TAMSULOSIN 0.4 MG CAP.SR.24H PO SCH (08:44)
[2022-07-02] MEDS: ENSURE ENLIVE 237 ML LIQUID (VANILLA) PO SCH ×3 (08:45→16:50)
[2022-07-02] MEDS: ZINC SULFATE 220 MG CAPSULE PO SCH (08:45)
[2022-07-02] MEDS: PRAMIPEXOLE DI-HCL 0.25 MG TABLET PO SCH ×2 (08:45→16:50)
[2022-07-02] MEDS: POTASSIUM CHLORIDE 10 MEQ TABLET.SA PO SCH (08:45)
[2022-07-02] MEDS: PANTOPRAZOLE 40 MG TABLET.DR PO SCH (08:45)
[2022-07-02] MEDS: HEPARIN SODIUM, PORCINE 5000 UNITS/1 ML VIAL SQ SCH ×2 (08:46→21:00)
[2022-07-02] MEDS: INSULIN REGULAR, HUMAN 100 UNIT/ML 3 ML VIAL SQ PRN ×3 (12:12→22:01)
[2022-07-02 20:00] VITALS: BP 120/56
[2022-07-02] MEDS: MIRTAZAPINE 15 MG TABLET PO SCH (21:42)
[2022-07-03] VITALS (9 sets, daily range): BP systolic 83–127; BP diastolic 47–71
[2022-07-03] MEDS: MEROPENEM 1 G in IV NS 0.9% 100 ML IV SCH ×3 (02:07→17:21)
[2022-07-03] MEDS: IV NS 0.9% 1,000 ML IV PRN (06:01)
[2022-07-03 07:06] LABS: BASOPHILS # (AUTO) 0.1 K/uL (0.0-0.2); BASOPHILS % (AUTO) 0.4 % (0.0-2.0); EOSINOPHILS % (AUTO) 0.8 % (0.0-6.0); HEMATOCRIT 39 % (39-51); HEMOGLOBIN 11.8 g/dL (13.5-17.5); LYMPHOCYTES # (AUTO) 1.3 K/uL (0.8-4.8); LYMPHOCYTES % (AUTO) 10.5 % (20.0-44.0); MEAN CORPUSCULAR HGB CONC 31 g/dl (31.0-36.0); MEAN CORPUSCULAR VOLUME 90 fL (80-96); MONOCYTES % (AUTO) 7.9 % (2.0-12.0); NEUTROPHILS # (AUTO) 10.2 K/uL (1.8-8.9); NEUTROPHILS % (AUTO) 80.4 % (43.0-81.0); PLATELET COUNT (AUTO) 307 K/uL (150-450); WHITE BLOOD COUNT (AUTO) 12.7 K/uL (4.3-11.0)
[2022-07-03 07:21] LABS: CALCIUM, SERUM 8.6 mg/dL (8.5-10.1); CREATININE 1.1 mg/dL (0.6-1.3); MAGNESIUM 2.5 mg/dL (1.8-2.4); PHOSPHORUS 2.9 mg/dL (2.5-4.9); POTASSIUM 4.4 mmol/L (3.5-5.1)
[2022-07-03] MEDS: BLOOD SUGAR DIAGNOSTIC 1 EACH STRIP IN SCH ×4 (07:46→22:28)
[2022-07-03] MEDS: INSULIN REGULAR, HUMAN 100 UNIT/ML 3 ML VIAL SQ PRN ×3 (07:46→22:29)
[2022-07-03] MEDS: PANTOPRAZOLE 40 MG TABLET.DR PO SCH (08:00)
[2022-07-03] MEDS: POTASSIUM CHLORIDE 10 MEQ TABLET.SA PO SCH (08:00)
[2022-07-03] MEDS: TAMSULOSIN 0.4 MG CAP.SR.24H PO SCH (08:00)
[2022-07-03] MEDS: PRAMIPEXOLE DI-HCL 0.25 MG TABLET PO SCH ×2 (08:00→17:00)
[2022-07-03] MEDS: CARBIDOPA/LEVODOPA 25/100 MG 1 UDTAB PO SCH ×3 (08:00→17:00)
[2022-07-03] MEDS: ZINC SULFATE 220 MG CAPSULE PO SCH (08:00)
[2022-07-03] MEDS: LOSARTAN POTASSIUM 25 MG TABLET PO SCH (08:01)
[2022-07-03] MEDS: ENSURE ENLIVE 237 ML LIQUID (VANILLA) PO SCH ×3 (08:01→17:00)
[2022-07-03] MEDS: HEPARIN SODIUM, PORCINE 5000 UNITS/1 ML VIAL SQ SCH ×2 (08:01→21:38)
[2022-07-03] MEDS: ERGOCALCIFEROL (VITAMIN D 2) 50,000 UNIT CAPSULE PO SCH (08:06)
[2022-07-03] MEDS ORDERED: ANESTHESIA TRAY IN PYXIS 1 EA TRAY MC ONE (10:18)
[2022-07-03] MEDS ORDERED: LIDOCAINE HCL/MPF 1% 30 ML VIAL IJ ONE (10:18)
[2022-07-03] MEDS ORDERED: HYDROMORPHONE INJ 2 MG/ML DISP.SYRIN ONE (13:24)
[2022-07-03] MEDS: MIDODRINE HCL (5MG) 5 MG TABLET PO SCH (20:26)
[2022-07-03] MEDS ORDERED: IV NS 0.9% 500 ML IV ONE (20:30)
[2022-07-03] MEDS: MIRTAZAPINE 15 MG TABLET PO SCH (21:35)
[2022-07-04 01:30] VITALS: BP 94/58
[2022-07-04] MEDS: MEROPENEM 1 G in IV NS 0.9% 100 ML IV SCH ×3 (01:34→20:34)
[2022-07-04] MEDS: IV NS 0.9% 1,000 ML IV PRN ×2 (01:43→20:19)
[2022-07-04 06:30] LABS: BASOPHILS % (AUTO) 0.1 % (0.0-2.0); EOSINOPHILS % (AUTO) 0.1 % (0.0-6.0); HEMATOCRIT 32 % (39-51); HEMOGLOBIN 10.3 g/dL (13.5-17.5); LYMPHOCYTES # (AUTO) 1.6 K/uL (0.8-4.8); MEAN CORPUSCULAR HGB CONC 32 g/dl (31.0-36.0); MEAN CORPUSCULAR VOLUME 89 fL (80-96); MONOCYTES # (AUTO) 1.3 K/uL (0.1-1.30); MONOCYTES % (AUTO) 6.3 % (2.0-12.0); NEUTROPHILS # (AUTO) 17.3 K/uL (1.8-8.9); NEUTROPHILS % (AUTO) 85.5 % (43.0-81.0); PLATELET COUNT (AUTO) 344 K/uL (150-450); RED BLOOD CELL COUNT(AUTO) 3.65 MIL/uL (4.5-6.0); WHITE BLOOD COUNT (AUTO) 20.2 K/uL (4.3-11.0)
[2022-07-04] MEDS: BLOOD SUGAR DIAGNOSTIC 1 EACH STRIP IN SCH ×4 (06:43→22:12)
[2022-07-04] MEDS: INSULIN REGULAR, HUMAN 100 UNIT/ML 3 ML VIAL SQ PRN ×4 (06:44→22:13)
[2022-07-04 07:15] LABS: CALCIUM, SERUM 8.2 mg/dL (8.5-10.1); CARBON DIOXIDE 21 mmol/L (21-32); CHLORIDE 106 mmol/L (98-107); CREATININE 1.5 mg/dL (0.6-1.3); GLUCOSE 108 mg/dL (74-106); MAGNESIUM 2.5 mg/dL (1.8-2.4); PHOSPHORUS 3.7 mg/dL (2.5-4.9); POTASSIUM 4.8 mmol/L (3.5-5.1); SODIUM SERUM 139 mmol/L (136-145); UREA NITROGEN, BLOOD 25 mg/dL (7-18)
[2022-07-04 08:00] VITALS: BP 102/42
[2022-07-04] MEDS: PANTOPRAZOLE 40 MG TABLET.DR PO SCH (08:38)
[2022-07-04] MEDS: PRAMIPEXOLE DI-HCL 0.25 MG TABLET PO SCH ×2 (08:39→17:18)
[2022-07-04] MEDS: MIDODRINE HCL (5MG) 5 MG TABLET PO SCH ×3 (08:39→17:18)
[2022-07-04] MEDS: ENSURE ENLIVE 237 ML LIQUID (VANILLA) PO SCH ×3 (08:39→17:18)
[2022-07-04] MEDS: CARBIDOPA/LEVODOPA 25/100 MG 1 UDTAB PO SCH ×3 (08:39→17:18)
[2022-07-04] MEDS: ZINC SULFATE 220 MG CAPSULE PO SCH (08:39)
[2022-07-04] MEDS: TAMSULOSIN 0.4 MG CAP.SR.24H PO SCH (08:39)
[2022-07-04] MEDS: POTASSIUM CHLORIDE 10 MEQ TABLET.SA PO SCH (08:40)
[2022-07-04] MEDS: HEPARIN SODIUM, PORCINE 5000 UNITS/1 ML VIAL SQ SCH (08:41)
[2022-07-04] MEDS: LOSARTAN POTASSIUM 25 MG TABLET PO SCH (08:41)
[2022-07-04 16:00] VITALS: BP 94/41
[2022-07-04 20:00] VITALS: BP 105/44
[2022-07-04] MEDS: MIRTAZAPINE 15 MG TABLET PO SCH (21:24)
[2022-07-04] MEDS: TEMAZEPAM 15 MG CAPSULE PO PRN (22:42)
[2022-07-05] VITALS: BP 98/40
[2022-07-05 04:00] VITALS: BP 112/53
[2022-07-05 06:29] LABS: BASOPHILS # (AUTO) 0.1 K/uL (0.0-0.2); BASOPHILS % (AUTO) 0.6 % (0.0-2.0); EOSINOPHILS % (AUTO) 0.8 % (0.0-6.0); HEMATOCRIT 28 % (39-51); HEMOGLOBIN 8.9 g/dL (13.5-17.5); LYMPHOCYTES # (AUTO) 1.4 K/uL (0.8-4.8); LYMPHOCYTES % (AUTO) 11.5 % (20.0-44.0); MEAN CORPUSCULAR HGB CONC 32 g/dl (31.0-36.0); MEAN CORPUSCULAR VOLUME 88 fL (80-96); MONOCYTES # (AUTO) 0.7 K/uL (0.1-1.30); NEUTROPHILS # (AUTO) 9.9 K/uL (1.8-8.9); NEUTROPHILS % (AUTO) 81.1 % (43.0-81.0); PLATELET COUNT (AUTO) 301 K/uL (150-450); RED BLOOD CELL COUNT(AUTO) 3.17 MIL/uL (4.5-6.0); WHITE BLOOD COUNT (AUTO) 12.2 K/uL (4.3-11.0)
[2022-07-05] MEDS: INSULIN REGULAR, HUMAN 100 UNIT/ML 3 ML VIAL SQ PRN ×3 (06:34→22:12)
[2022-07-05] MEDS: BLOOD SUGAR DIAGNOSTIC 1 EACH STRIP IN SCH ×4 (06:34→22:12)
[2022-07-05 06:49] LABS: ALANINE AMINOTRANSFERASE 6 U/L (12-78); ALKALINE PHOSPHATASE 117 U/L (46-116); ASPARTATE AMINOTRANSFERASE 62 U/L (15-37); BILIRUBIN,TOTAL 0.6 mg/dL (0.2-1.0); CALCIUM, SERUM 7.9 mg/dL (8.5-10.1); CARBON DIOXIDE 22 mmol/L (21-32); CHLORIDE 106 mmol/L (98-107); CREATININE 1.1 mg/dL (0.6-1.3); GLUCOSE 84 mg/dL (74-106); MAGNESIUM 2.4 mg/dL (1.8-2.4); PHOSPHORUS 2.5 mg/dL (2.5-4.9); POTASSIUM 4.5 mmol/L (3.5-5.1); SODIUM SERUM 137 mmol/L (136-145); TOTAL PROTEIN, SERUM 5.1 g/dL (6.4-8.2); UREA NITROGEN, BLOOD 25 mg/dL (7-18)
[2022-07-05 07:25] LABS: ALBUMIN 1.4 g/dL (3.4-5.0)
[2022-07-05 08:00] VITALS: BP 110/49
[2022-07-05] MEDS: PRAMIPEXOLE DI-HCL 0.25 MG TABLET PO SCH ×2 (08:18→16:38)
[2022-07-05] MEDS: CARBIDOPA/LEVODOPA 25/100 MG 1 UDTAB PO SCH ×3 (08:18→16:38)
[2022-07-05] MEDS: ZINC SULFATE 220 MG CAPSULE PO SCH (08:18)
[2022-07-05] MEDS: PANTOPRAZOLE 40 MG TABLET.DR PO SCH (08:18)
[2022-07-05] MEDS: TAMSULOSIN 0.4 MG CAP.SR.24H PO SCH (08:18)
[2022-07-05] MEDS: POTASSIUM CHLORIDE 10 MEQ TABLET.SA PO SCH (08:18)
[2022-07-05] MEDS: MEROPENEM 1 G in IV NS 0.9% 100 ML IV SCH (08:19)
[2022-07-05] MEDS: MIDODRINE HCL (5MG) 5 MG TABLET PO SCH ×3 (08:19→16:39)
[2022-07-05] MEDS: ENSURE ENLIVE 237 ML LIQUID (VANILLA) PO SCH ×3 (08:19→17:02)
[2022-07-05] MEDS: LOSARTAN POTASSIUM 25 MG TABLET PO SCH (08:19)
[2022-07-05 16:00] VITALS: BP 109/64
[2022-07-05] MEDS ORDERED: IV D5/ 0.9% NACL 1,000 ML IV PRN (20:00)
[2022-07-05] MEDS: MIRTAZAPINE 15 MG TABLET PO SCH (22:14)
[2022-07-05] MEDS: TEMAZEPAM 15 MG CAPSULE PO PRN (23:15)
[2022-07-06 07:15] LABS: BASOPHILS # (AUTO) 0.1 K/uL (0.0-0.2); BASOPHILS % (AUTO) 0.5 % (0.0-2.0); EOSINOPHILS % (AUTO) 0.7 % (0.0-6.0); HEMATOCRIT 28 % (39-51); HEMOGLOBIN 8.8 g/dL (13.5-17.5); LYMPHOCYTES # (AUTO) 1.5 K/uL (0.8-4.8); LYMPHOCYTES % (AUTO) 11.8 % (20.0-44.0); MEAN CORPUSCULAR HGB CONC 32 g/dl (31.0-36.0); MEAN CORPUSCULAR VOLUME 88 fL (80-96); MONOCYTES # (AUTO) 0.8 K/uL (0.1-1.30); MONOCYTES % (AUTO) 6.3 % (2.0-12.0); NEUTROPHILS # (AUTO) 10.2 K/uL (1.8-8.9); NEUTROPHILS % (AUTO) 80.7 % (43.0-81.0); PLATELET COUNT (AUTO) 323 K/uL (150-450); RED BLOOD CELL COUNT(AUTO) 3.16 MIL/uL (4.5-6.0); WHITE BLOOD COUNT (AUTO) 12.6 K/uL (4.3-11.0)
[2022-07-06 07:24] LABS: MAGNESIUM 2.5 mg/dL (1.8-2.4); PHOSPHORUS 2.4 mg/dL (2.5-4.9); POTASSIUM 4.7 mmol/L (3.5-5.1)
[2022-07-06] MEDS: BLOOD SUGAR DIAGNOSTIC 1 EACH STRIP IN SCH ×4 (07:36→22:00)
[2022-07-06] MEDS: INSULIN REGULAR, HUMAN 100 UNIT/ML 3 ML VIAL SQ PRN (07:37)
[2022-07-06 08:00] VITALS: BP 117/74
[2022-07-06] MEDS: TAMSULOSIN 0.4 MG CAP.SR.24H PO SCH (09:37)
[2022-07-06] MEDS: ZINC SULFATE 220 MG CAPSULE PO SCH (09:37)
[2022-07-06] MEDS: PANTOPRAZOLE 40 MG TABLET.DR PO SCH (09:37)
[2022-07-06] MEDS: CARBIDOPA/LEVODOPA 25/100 MG 1 UDTAB PO SCH ×3 (09:37→17:04)
[2022-07-06] MEDS: POTASSIUM CHLORIDE 10 MEQ TABLET.SA PO SCH (09:37)
[2022-07-06] MEDS: PRAMIPEXOLE DI-HCL 0.25 MG TABLET PO SCH ×2 (09:38→17:04)
[2022-07-06] MEDS: LOSARTAN POTASSIUM 25 MG TABLET PO SCH (09:38)
[2022-07-06] MEDS: MIDODRINE HCL (5MG) 5 MG TABLET PO SCH ×3 (09:39→17:05)
[2022-07-06] MEDS: ENSURE ENLIVE 237 ML LIQUID (VANILLA) PO SCH ×3 (09:42→17:05)
[2022-07-06] MEDS ORDERED: MIDO5TAB4 PO (09:59)
[2022-07-06] MEDS ORDERED: MIRT-121 PO (09:59)
[2022-07-06] MEDS ORDERED: LACT-179 PO (10:18)
[2022-07-06] MEDS ORDERED: MULT-754 PO (10:18)
[2022-07-06 12:00] VITALS: BP 106/41
[2022-07-06 16:00] VITALS: BP 106/50
[2022-07-06] MEDS ORDERED: K PHOS NEUTRAL 250 MG TABLET PO ONE (16:30)
[2022-07-06 20:00] VITALS: BP 111/42
[2022-07-07] MEDS: MIRTAZAPINE 15 MG TABLET PO SCH (00:34)
[2022-07-07 08:00] VITALS: BP 115/50
[2022-07-07] MEDS: BLOOD SUGAR DIAGNOSTIC 1 EACH STRIP IN SCH ×2 (08:19→11:31)
[2022-07-07] MEDS: ENSURE ENLIVE 237 ML LIQUID (VANILLA) PO SCH ×2 (08:19→11:32)
[2022-07-07] MEDS: INSULIN REGULAR, HUMAN 100 UNIT/ML 3 ML VIAL SQ PRN (08:20)
[2022-07-07] MEDS: LOSARTAN POTASSIUM 25 MG TABLET PO SCH (08:34)
[2022-07-07] MEDS: PANTOPRAZOLE 40 MG TABLET.DR PO SCH (08:34)
[2022-07-07] MEDS: TAMSULOSIN 0.4 MG CAP.SR.24H PO SCH (08:35)
[2022-07-07] MEDS: POTASSIUM CHLORIDE 10 MEQ TABLET.SA PO SCH (08:35)
[2022-07-07] MEDS: PRAMIPEXOLE DI-HCL 0.25 MG TABLET PO SCH (08:35)
[2022-07-07] MEDS: CARBIDOPA/LEVODOPA 25/100 MG 1 UDTAB PO SCH ×2 (08:36→12:01)
[2022-07-07] MEDS: ZINC SULFATE 220 MG CAPSULE PO SCH (08:36)
[2022-07-07] MEDS: MIDODRINE HCL (5MG) 5 MG TABLET PO SCH ×2 (08:36→12:02)
[2022-07-07] MEDS ORDERED: FLUCONAZOLE (100 MG) 100 MG TABLET PO SCH (11:30)
[2022-07-07 15:45] VITALS: BP 115/50
== END 2022-07-07 16:15 | DRG 853 ==
LOC: ER 11:42 → TELE 15:22 → ICU 06-25 11:44 → TELE 06-25 18:50 → MED 07-01 11:21
PROVIDERS: ADMIT Nurse Practitioner Acute Care; ATTEND Nurse Practitioner Acute Care
PROC: 0Y6M0Z9 Detachment at Right Foot, Partial 1st Ray, Open Approach (ICD-10-PCS; principal; 2022-06-25)
PROC: 0KBV0ZZ Excision of Right Foot Muscle, Open Approach (ICD-10-PCS; 2022-06-25)
PROC: B31 Imaging, Upper Arteries, Fluoroscopy (ICD-10-PCS; 2022-06-25)
PROC: B44GZZZ Ultrasonography of Left Lower Extremity Arteries (ICD-10-PCS; 2022-06-25)
PROC: B41FYZZ Fluoroscopy of Right Lower Extremity Arteries using Other Contrast (ICD-10-PCS; 2022-06-25)
PROC: 05HB33Z Insertion of Infusion Device into Right Basilic Vein, Percutaneous Approach (ICD-10-PCS; 2022-06-29)
PROC: 0Y6C0Z1 Detachment at Right Upper Leg, High, Open Approach (ICD-10-PCS; 2022-07-03)
DX: A41.9 Sepsis, unspecified organism (principal); G92.8 Other toxic encephalopathy; N17.0 Acute kidney failure with tubular necrosis; E11.52 Type 2 diabetes mellitus with diabetic peripheral angiopathy with gangrene; L03.115 Cellulitis of right lower limb; M86.8X7 Other osteomyelitis, ankle and foot; I96 Gangrene, not elsewhere classified; N39.0 Urinary tract infection, site not specified; L02.611 Cutaneous abscess of right foot; E87.1 Hypo-osmolality and hyponatremia; I50.32 Chronic diastolic (congestive) heart failure; E11.69 Type 2 diabetes mellitus with other specified complication; Z20.822 Contact with and (suspected) exposure to COVID-19; I11.0 Hypertensive heart disease with heart failure; Z79.01 Long term (current) use of anticoagulants; Z79.899 Other long term (current) drug therapy; B96.89 Other specified bacterial agents as the cause of diseases classified elsewhere; F02.80 Dementia in other diseases classified elsewhere, unspecified severity, without behavioral disturbance, psychotic disturbance, mood disturbance, and anxiety; G20 Parkinson's disease; G30.9 Alzheimer's disease, unspecified; N40.0 Benign prostatic hyperplasia without lower urinary tract symptoms; I48.0 Paroxysmal atrial fibrillation; R62.7 Adult failure to thrive; B96.4 Proteus (mirabilis) (morganii) as the cause of diseases classified elsewhere; E87.6 Hypokalemia; E83.39 Other disorders of phosphorus metabolism; I70.0 Atherosclerosis of aorta; D64.9 Anemia, unspecified; N28.1 Cyst of kidney, acquired; L89.156 Pressure-induced deep tissue damage of sacral region; L89.626 Pressure-induced deep tissue damage of left heel
CPT/HCPCS: 36410; 36415; 71045-TC; 73620-TC; 75625; 75710-TC; 76770-TC; 80048-TC; 80053-TC; 80061-TC; 80076-TC; 80202-TC; 81001; 82962-TC; 83605-TC; 83735-TC; 84100-TC; 84443-TC; 84484-TC; 85025-TC; 85730-TC; 86850-TC; 87040-TC; 87081-TC; 87086-TC; 88305-TC; 88307-TC; 88311-TC; 92526; 93307-TC; 93970-TC; 97112-TC; 97530-TC; A4217; A6253; A6403; C1769; C1887; C1894; C9803; G0378; J0690; J0692; J1100; J1170; J1644; J1815; J1885; J2175; J2185; J2405; J2543; J2704; J2765; J3010; J3370; J3480; J3490; J7030; J7040; J7042; J7050; J7060; Q9967